=== PATIENT | male | born 1970 | race Two or more races ===

== ENCOUNTER 2017-04-19 12:29 | Inpatient (IN) | payer MEDICARE, OTHER ==
[~2017-04-19] VITALS: Ht 172.7 cm; Wt 137.0 kg
[~2017-04-19 12:29] MED LIST: CLON0.2T PO; FURO80TA3; GLYB5TAB8; INSLISPI SC; METO-5 OR; SIMV40TA96 PO; VALS80TA42 PO
[2017-04-19] MEDS ORDERED: SODIUM CHLORIDE 0.9% 1,000 ML IV ONE ×2 (13:24)
[2017-04-19] MEDS ORDERED: VANCOMYCIN 1GM/250ML D5W 250 ML IV ONE (13:30)
[2017-04-19] MEDS ORDERED: ONDANSETRON HCL 4 MG/2 ML VIAL IV ONE (13:30)
[2017-04-19] MEDS: SODIUM CHLORIDE 0.9% 1,000 ML IV ONE ×2 (13:47→15:20)
[2017-04-19 14:00] LABS: Basophils # (auto) 0 uL; Basophils % (auto) 0.4 % (0.0-2.0); CONDITION Y; Eosinophils # (auto) 0.2 uL; Eosinophils % (auto) 1.9 % (0.0-7.0); Hematocrit 43.6 % (41.0-53.0); Hemoglobin 14.5 g/dL (13.5-17.5); Lymphocytes # (auto) 1.1 uL; Mean Corpuscular Hemoglobin 33.1 pg (28.0-32.0); Mean Corpuscular Hgb Conc. 33.2 g/dL (32.0-36.0); Mean Corpuscular Volume 99.6 fL (80.0-100.0); Mean Platelet Volume 9.4 fL (7.4-10.4); Monocytes # (auto) 0.6 uL; Monocytes % (auto) 6.5 % (0.0-12.0); Neutrophils # (auto) 7.9 uL; Neutrophils % (auto) 80.2 % (37.0-80.0); Platelet Count (auto) 295 10^3/uL (140-450); Red Cell Distribution Width 15.8 % (11.6-16.0); White Blood Cell 9.8 10^3/uL (4.4-10.8)
[2017-04-19 14:17] LABS: INR 1.09 (0.9-1.15); Partial Thromboplastin Time 34.7 sec (22.64-33.71); Prothrombin Time 11.9 sec (9.37-12.3)
[2017-04-19 14:18] LABS: Albumin 2.2 g/dL (3.4-5.0); Calcium 8.9 mg/dL (8.5-10.1)
[2017-04-19 14:19] LABS: Lactic Acid w/Reflex 2.9 mmol/L (0.4-2.0)
[2017-04-19 14:28] LABS: BUN/Creatinine Ratio 3.3; Bilirubin, Total 1.3 mg/dL (0.2-1.0); Potassium 2.8 mmol/L (3.5-5.1); Total Protein 7.9 g/dL (6.4-8.2)
[2017-04-19 14:34] LABS: B-Type Natriuretic Peptide 34.14 pg/mL (0-100)
[2017-04-19] MEDS ORDERED: cefTRIAXone 1GM/50ML D5W 50 ML IV ONE (14:45)
[2017-04-19 14:49] LABS: REFLEX LACTIC ACID YES OR NO YES
[2017-04-19 14:57] LABS: Temperature: 24.6 C (20.0-25.0)
[2017-04-19] MEDS ORDERED: HYDROcodone-ACET 5/325MG TAB PO ONE (15:00)
[2017-04-19] MEDS ORDERED: POTASSIUM CHL 10% (20 MEQ/15ML) 15ml ORAL SOLN PO ONE (15:15)
[2017-04-19] MEDS ORDERED: DOCUSATE SOD 100 MG CAP PO PRN (15:30)
[2017-04-19] MEDS ORDERED: DEXTROSE (50%) 50ML SYRG IV PRN (15:30)
[2017-04-19] MEDS ORDERED: TEMAZEPAM 15 MG CAP PO PRN (15:30)
[2017-04-19] MEDS ORDERED: SODIUM CHLORIDE 0.9% 2,000 ML IV ONE (15:30)
[2017-04-19] MEDS ORDERED: ACETAMINOPHEN 325 MG TAB PO PRN (15:30)
[2017-04-19] MEDS ORDERED: ONDANSETRON HCL 4 MG/2 ML VIAL IV PRN (15:30)
[2017-04-19] MEDS ORDERED: NITROGLYCERIN 0.4 MG SL TAB SL PRN (15:30)
[2017-04-19] MEDS ORDERED: MORPHINE SULF INJ 2 MG/ML SYRINGE 1ML IV PRN ×2 (15:30)
[2017-04-19] MEDS ORDERED: POTASSIUM CHLORIDE 40 MEQ, LIDOCAINE 1% (LOCAL ANESTH.) 4 ML in SODIUM CHL 0.9% 250 ML IV ONE (16:00)
[2017-04-19] MEDS: SODIUM CHLORIDE 0.9% 1,000 ML IV SCH ×2 (16:06→23:55)
[2017-04-19] MEDS: FAMOTIDINE 20 MG TAB PO SCH (16:52)
[2017-04-19] MEDS: ACCU-CHEK COMFORT CURVE STRIP VI SCH ×2 (17:59→21:57)
[2017-04-19] MEDS: Boost Glucose Control 8 Ounces PO SCH ×2 (18:00→21:55)
[2017-04-19] MEDS: FUROSEMIDE 20 MG TAB PO SCH (18:00)
[2017-04-19] MEDS: InsuLIN REG 1unit/0.01ml Soln (100units/ml) SC SCH ×2 (18:07→21:57)
[2017-04-19 21:19] LABS: BUN/Creatinine Ratio 3.5; Calcium 8.4 mg/dL (8.5-10.1); Potassium 3.7 mmol/L (3.5-5.1)
[2017-04-19] MEDS: CLINDAMYCIN 300MG IV 50 ML IV SCH (21:55)
[2017-04-19] MEDS: METOPROLOL TARTRATE 50 MG TAB PO SCH (21:56)
[2017-04-19] MEDS: ASCORBIC ACID 500 MG TAB PO SCH (21:57)
[2017-04-19] MEDS: INSULIN DETEMIR(LEVEMIR) 1unit/0.01ml Soln (100units/ml) SC SCH (22:23)
[2017-04-19 23:59] VITALS: BP 156/88
[2017-04-20] VITALS (7 sets, daily range): BP systolic 127–159; BP diastolic 69–91
[2017-04-20] MEDS: HYDROcodone-ACET 5/325MG TAB PO PRN (02:26)
[2017-04-20 06:14] LABS: Basophils # (auto) 0 uL; Basophils % (auto) 0.4 % (0.0-2.0); CONDITION Y; Eosinophils # (auto) 0.1 uL; Eosinophils % (auto) 1.5 % (0.0-7.0); Hematocrit 35.7 % (41.0-53.0); Hemoglobin 11.8 g/dL (13.5-17.5); Lymphocytes # (auto) 1.4 uL; Lymphocytes % (auto) 15.4 % (10.0-50.0); Mean Corpuscular Hgb Conc. 33.2 g/dL (32.0-36.0); Mean Corpuscular Volume 99.7 fL (80.0-100.0); Mean Platelet Volume 9.1 fL (7.4-10.4); Monocytes # (auto) 0.7 uL; Neutrophils # (auto) 6.8 uL; Neutrophils % (auto) 74.7 % (37.0-80.0); Platelet Count (auto) 277 10^3/uL (140-450); Red Cell Distribution Width 16.5 % (11.6-16.0); White Blood Cell 9.2 10^3/uL (4.4-10.8)
[2017-04-20] MEDS: CLINDAMYCIN 300MG IV 50 ML IV SCH ×3 (06:22→22:29)
[2017-04-20] MEDS: Boost Glucose Control 8 Ounces PO SCH ×4 (06:22→22:31)
[2017-04-20] MEDS: FUROSEMIDE 20 MG TAB PO SCH (06:23)
[2017-04-20 06:35] LABS: Albumin 1.6 g/dL (3.4-5.0)
[2017-04-20 06:49] LABS: BUN/Creatinine Ratio 3.5; Bilirubin, Total 0.6 mg/dL (0.2-1.0)
[2017-04-20] MEDS: ACCU-CHEK COMFORT CURVE STRIP VI SCH ×4 (06:52→22:00)
[2017-04-20] MEDS: InsuLIN REG 1unit/0.01ml Soln (100units/ml) SC SCH ×4 (06:53→22:00)
[2017-04-20] MEDS: INSULIN DETEMIR(LEVEMIR) 1unit/0.01ml Soln (100units/ml) SC SCH ×2 (06:53→22:00)
[2017-04-20 06:59] LABS: Potassium 2.9 mmol/L (3.5-5.1)
[2017-04-20] MEDS: SODIUM CHLORIDE 0.9% 1,000 ML IV SCH (08:03)
[2017-04-20] MEDS ORDERED: CINACALCET HYDROCHLORIDE 30 MG TAB PO SCH (10:00)
[2017-04-20] MEDS: cefTRIAXone 1GM/50ML D5W 50 ML IV SCH (10:42)
[2017-04-20] MEDS: MULTIPLE VITAMIN TAB PO SCH (10:43)
[2017-04-20] MEDS: ZINC SULFATE 220 MG CAP PO SCH (10:43)
[2017-04-20] MEDS: CALCITRIOL 0.25 MCG CAP PO SCH (10:43)
[2017-04-20] MEDS: FAMOTIDINE 20 MG TAB PO SCH (10:43)
[2017-04-20] MEDS: METOPROLOL TARTRATE 50 MG TAB PO SCH (10:44)
[2017-04-20] MEDS: ASCORBIC ACID 500 MG TAB PO SCH ×2 (10:44→22:31)
[2017-04-20] MEDS ORDERED: POTASSIUM CHLORIDE 20 MEQ, LIDOCAINE 1% (LOCAL ANESTH.) 2 ML in SODIUM CHL 0.9% 100 ML IV ONE (13:45)
[2017-04-20] MEDS ORDERED: PANTOPRAZOLE 40 MG/10 ML VIAL IV ONE (15:00)
[2017-04-20] MEDS ORDERED: FAMOTIDINE (10MG/ML) 2ML VL IV ONE (15:00)
[2017-04-20 16:07] LABS: BUN/Creatinine Ratio 3.4; Calcium 8.5 mg/dL (8.5-10.1); Potassium 3.5 mmol/L (3.5-5.1)
[2017-04-20] MEDS: METOPROLOL TARTRATE 25 MG TAB PO SCH (22:30)
[2017-04-21 05:00] VITALS: BP 134/70
[2017-04-21 05:38] LABS: Basophils # (auto) 0 uL; Basophils % (auto) 0.3 % (0.0-2.0); CONDITION Y; Eosinophils # (auto) 0.1 uL; Hematocrit 38.5 % (41.0-53.0); Hemoglobin 12.9 g/dL (13.5-17.5); Lymphocytes # (auto) 1.6 uL; Lymphocytes % (auto) 13.8 % (10.0-50.0); Mean Corpuscular Hemoglobin 33.4 pg (28.0-32.0); Mean Corpuscular Hgb Conc. 33.5 g/dL (32.0-36.0); Mean Corpuscular Volume 99.5 fL (80.0-100.0); Monocytes # (auto) 0.7 uL; Neutrophils % (auto) 78.9 % (37.0-80.0); Platelet Count (auto) 315 10^3/uL (140-450); White Blood Cell 11.4 10^3/uL (4.4-10.8)
[2017-04-21 05:40] LABS: Potassium 3.3 mmol/L (3.5-5.1)
[2017-04-21 05:49] LABS: Albumin 1.7 g/dL (3.4-5.0); BUN/Creatinine Ratio 3.3; Bilirubin, Total 0.5 mg/dL (0.2-1.0); Calcium 8.1 mg/dL (8.5-10.1); Total Protein 6.9 g/dL (6.4-8.2)
[2017-04-21] MEDS: CLINDAMYCIN 300MG IV 50 ML IV SCH ×2 (06:41→13:43)
[2017-04-21] MEDS: Boost Glucose Control 8 Ounces PO SCH ×2 (06:41→11:37)
[2017-04-21] MEDS: ACCU-CHEK COMFORT CURVE STRIP VI SCH ×4 (06:41→22:26)
[2017-04-21] MEDS: InsuLIN REG 1unit/0.01ml Soln (100units/ml) SC SCH ×4 (06:42→22:00)
[2017-04-21] MEDS: INSULIN DETEMIR(LEVEMIR) 1unit/0.01ml Soln (100units/ml) SC SCH ×2 (06:52→22:00)
[2017-04-21 09:00] VITALS: BP 130/60
[2017-04-21] MEDS: PANTOPRAZOLE 40 MG/10 ML VIAL IV SCH (09:21)
[2017-04-21] MEDS: ASCORBIC ACID 500 MG TAB PO SCH ×2 (09:21→22:18)
[2017-04-21] MEDS: ZINC SULFATE 220 MG CAP PO SCH (09:21)
[2017-04-21] MEDS: cefTRIAXone 1GM/50ML D5W 50 ML IV SCH (09:21)
[2017-04-21] MEDS: CALCITRIOL 0.25 MCG CAP PO SCH (09:21)
[2017-04-21] MEDS: MULTIPLE VITAMIN TAB PO SCH (09:22)
[2017-04-21] MEDS: METOPROLOL TARTRATE 25 MG TAB PO SCH ×2 (09:23→22:17)
[2017-04-21] MEDS ORDERED: FAMOTIDINE (10MG/ML) 2ML VL IV SCH (10:00)
[2017-04-21 13:00] VITALS: BP 109/60
[2017-04-21] MEDS ORDERED: ACETAMINOPHEN 325 MG TAB PO PRN (13:45)
[2017-04-21] MEDS ORDERED: VANCOMYCIN PER PHARMACY 0 MG IV SCH (14:30)
[2017-04-21] MEDS: LINEZOLID 600MG/300ML 300 ML IV SCH ×2 (15:49→22:17)
[2017-04-21] MEDS: SODIUM CHLORIDE 0.9% 1,000 ML IV SCH (15:49)
[2017-04-21] MEDS ORDERED: POTASSIUM CHL 20 Meq TABLET PO ONE (16:45)
[2017-04-21 17:00] VITALS: BP 109/70
[2017-04-21] MEDS: PRO-STAT 64 30ML PO SCH (18:04)
[2017-04-21 21:46] VITALS: BP 127/76
[2017-04-22 05:00] VITALS: BP 120/61
[2017-04-22] MEDS: INSULIN DETEMIR(LEVEMIR) 1unit/0.01ml Soln (100units/ml) SC SCH ×2 (07:00→22:40)
[2017-04-22] MEDS: ACCU-CHEK COMFORT CURVE STRIP VI SCH ×4 (07:00→22:00)
[2017-04-22] MEDS: InsuLIN REG 1unit/0.01ml Soln (100units/ml) SC SCH ×4 (07:00→22:39)
[2017-04-22] MEDS: SODIUM CHLORIDE 0.9% 1,000 ML IV SCH (07:39)
[2017-04-22] MEDS: PRO-STAT 64 30ML PO SCH ×2 (08:00→18:43)
[2017-04-22 08:03] VITALS: BP 145/86
[2017-04-22] MEDS: LINEZOLID 600MG/300ML 300 ML IV SCH ×2 (10:08→22:23)
[2017-04-22] MEDS: ASCORBIC ACID 500 MG TAB PO SCH ×2 (10:08→22:23)
[2017-04-22] MEDS: PANTOPRAZOLE 40 MG/10 ML VIAL IV SCH (10:08)
[2017-04-22] MEDS: ZINC SULFATE 220 MG CAP PO SCH (10:09)
[2017-04-22] MEDS: CALCITRIOL 0.25 MCG CAP PO SCH (10:09)
[2017-04-22] MEDS: MULTIPLE VITAMIN TAB PO SCH (10:09)
[2017-04-22] MEDS: METOPROLOL TARTRATE 25 MG TAB PO SCH ×2 (10:09→22:22)
[2017-04-22] MEDS: cefTRIAXone 1GM/50ML D5W 50 ML IV SCH (10:10)
[2017-04-22 10:47] LABS: Albumin 1.5 g/dL (3.4-5.0); BUN/Creatinine Ratio 3.4; Bilirubin, Total 0.4 mg/dL (0.2-1.0); Calcium 8.6 mg/dL (8.5-10.1); Potassium 3.4 mmol/L (3.5-5.1); Total Protein 6.5 g/dL (6.4-8.2)
[2017-04-22 12:00] VITALS: BP 134/71
[2017-04-22] MEDS ORDERED: ceFAZolin 1GM VL ONE (13:03)
[2017-04-22] MEDS ORDERED: BUPIVACAINE 0.75% INJ 10ML MPV SDV IJ ONE (13:03)
[2017-04-22] MEDS ORDERED: ONDANSETRON HCL 4 MG/2 ML VIAL ONE (13:05)
[2017-04-22] MEDS ORDERED: SODIUM CHLORIDE LOCK 20 ML ONE (13:05)
[2017-04-22] MEDS ORDERED: fentaNYL CITRATE 100 MCG/2 ML VL ONE (13:05)
[2017-04-22] MEDS ORDERED: MIDAZOLAM HCL 1MG/1ML-2 ML VIAL ONE (13:05)
[2017-04-22] MEDS ORDERED: PROPOFOL 10 MG/ML 20 ML IV ONE ×3 (13:05→14:27)
[2017-04-22] MEDS ORDERED: CLINDAMYCIN 900 MG IV ONE (13:44)
[2017-04-22] MEDS: HYDROmorphone HCL 2 MG/ML VL IV PRN ×2 (15:14→15:24)
[2017-04-22] MEDS ORDERED: ACCU-CHEK COMFORT CURVE STRIP VI ONE (15:15)
[2017-04-22] MEDS ORDERED: METOCLOPRAMIDE HCL 5MG/ml INJ 2ml VIAL IV ONE (15:15)
[2017-04-22] MEDS ORDERED: METOCLOPRAMIDE HCL 5MG/ml INJ 2ml VIAL IV PRN (15:30)
[2017-04-22 17:00] VITALS: BP 145/87
[2017-04-22] MEDS ORDERED: HYDROmorphone HCL 2 MG/ML VL IV PRN (17:15)
[2017-04-22 20:00] VITALS: BP 132/80
[2017-04-22 22:00] VITALS: BP 132/80
[2017-04-23] VITALS (7 sets, daily range): BP systolic 136–157; BP diastolic 83–97
[2017-04-23 06:05] LABS: Basophils # (auto) 0 uL; CONDITION Y; Eosinophils # (auto) 0 uL; Hematocrit 38.5 % (41.0-53.0); Hemoglobin 12.6 g/dL (13.5-17.5); Lymphocytes # (auto) 0.8 uL; Lymphocytes % (auto) 7.3 % (10.0-50.0); Mean Corpuscular Hemoglobin 32.8 pg (28.0-32.0); Mean Corpuscular Hgb Conc. 32.7 g/dL (32.0-36.0); Mean Corpuscular Volume 100.4 fL (80.0-100.0); Mean Platelet Volume 9.4 fL (7.4-10.4); Monocytes # (auto) 0.4 uL; Monocytes % (auto) 3.9 % (0.0-12.0); Neutrophils # (auto) 10.2 uL; Neutrophils % (auto) 88.8 % (37.0-80.0); Platelet Count (auto) 288 10^3/uL (140-450); Red Cell Distribution Width 16.5 % (11.6-16.0); White Blood Cell 11.5 10^3/uL (4.4-10.8)
[2017-04-23 06:43] LABS: Calcium 8.1 mg/dL (8.5-10.1); Potassium 3.3 mmol/L (3.5-5.1)
[2017-04-23] MEDS: InsuLIN REG 1unit/0.01ml Soln (100units/ml) SC SCH ×4 (06:46→22:20)
[2017-04-23] MEDS: ACCU-CHEK COMFORT CURVE STRIP VI SCH ×4 (06:47→22:20)
[2017-04-23] MEDS: INSULIN DETEMIR(LEVEMIR) 1unit/0.01ml Soln (100units/ml) SC SCH ×2 (06:47→22:19)
[2017-04-23 06:51] LABS: BUN/Creatinine Ratio 3.6
[2017-04-23] MEDS: PRO-STAT 64 30ML PO SCH ×4 (09:09→18:08)
[2017-04-23] MEDS: PANTOPRAZOLE 40 MG/10 ML VIAL IV SCH (09:10)
[2017-04-23] MEDS: ASCORBIC ACID 500 MG TAB PO SCH ×2 (09:10→22:04)
[2017-04-23] MEDS: cefTRIAXone 1GM/50ML D5W 50 ML IV SCH (09:10)
[2017-04-23] MEDS: MULTIPLE VITAMIN TAB PO SCH (09:10)
[2017-04-23] MEDS: CALCITRIOL 0.25 MCG CAP PO SCH (09:11)
[2017-04-23] MEDS: METOPROLOL TARTRATE 25 MG TAB PO SCH ×2 (09:11→22:04)
[2017-04-23] MEDS: ZINC SULFATE 220 MG CAP PO SCH (09:11)
[2017-04-23] MEDS: LINEZOLID 600MG/300ML 300 ML IV SCH ×2 (10:22→22:07)
[2017-04-23 12:48] LABS: INR 1.1 (0.9-1.15); Partial Thromboplastin Time 39.6 sec (22.64-33.71)
[2017-04-23] MEDS: HYDROcodone-ACET 5/325MG TAB PO PRN (16:52)
[2017-04-23] MEDS ORDERED: LIDOCAINE 1% HCL (LOCAL ANESTH.) INJ 20ML MDV ID ONE (18:00)
[2017-04-23] MEDS: SODIUM CHLOR 0.9% PF (SALINE LOCK) 10ML VIAL IV SCH (22:07)
[2017-04-24] VITALS (7 sets, daily range): BP systolic 125–159; BP diastolic 78–95
[2017-04-24] MEDS ORDERED: hydrALAZINE HCL 20 MG/ML VL IV ONE (00:30)
[2017-04-24] MEDS: ACCU-CHEK COMFORT CURVE STRIP VI SCH ×4 (07:00→22:16)
[2017-04-24] MEDS: InsuLIN REG 1unit/0.01ml Soln (100units/ml) SC SCH ×4 (07:00→22:21)
[2017-04-24] MEDS: INSULIN DETEMIR(LEVEMIR) 1unit/0.01ml Soln (100units/ml) SC SCH ×2 (07:00→22:22)
[2017-04-24] MEDS: MULTIPLE VITAMIN TAB PO SCH (09:41)
[2017-04-24] MEDS: ASCORBIC ACID 500 MG TAB PO SCH ×2 (09:42→22:13)
[2017-04-24] MEDS: CALCITRIOL 0.25 MCG CAP PO SCH (09:42)
[2017-04-24] MEDS: ZINC SULFATE 220 MG CAP PO SCH (09:42)
[2017-04-24] MEDS: PANTOPRAZOLE 40 MG/10 ML VIAL IV SCH (09:43)
[2017-04-24] MEDS: METOPROLOL TARTRATE 25 MG TAB PO SCH ×2 (09:43→22:13)
[2017-04-24] MEDS: cefTRIAXone 1GM/50ML D5W 50 ML IV SCH (09:44)
[2017-04-24] MEDS: LINEZOLID 600MG/300ML 300 ML IV SCH ×2 (09:44→22:12)
[2017-04-24] MEDS: SODIUM CHLOR 0.9% PF (SALINE LOCK) 10ML VIAL IV SCH ×2 (09:49→20:20)
[2017-04-24] MEDS: PRO-STAT 64 30ML PO SCH ×3 (09:49→17:45)
[2017-04-24] MEDS: HYDROcodone-ACET 5/325MG TAB PO PRN (10:02)
[2017-04-24] MEDS ORDERED: METOCLOPRAMIDE HCL 5MG/ml INJ 2ml VIAL IV ONE (20:15)
[2017-04-25 05:06] VITALS: BP 147/71
[2017-04-25] MEDS: InsuLIN REG 1unit/0.01ml Soln (100units/ml) SC SCH ×4 (07:00→22:00)
[2017-04-25] MEDS: INSULIN DETEMIR(LEVEMIR) 1unit/0.01ml Soln (100units/ml) SC SCH ×2 (07:23→22:00)
[2017-04-25] MEDS: ACCU-CHEK COMFORT CURVE STRIP VI SCH ×4 (07:23→22:11)
[2017-04-25 08:00] VITALS: BP 128/78
[2017-04-25] MEDS: PRO-STAT 64 30ML PO SCH ×2 (08:00→18:00)
[2017-04-25] MEDS: SODIUM CHLOR 0.9% PF (SALINE LOCK) 10ML VIAL IV SCH ×2 (10:00→22:12)
[2017-04-25] MEDS: LINEZOLID 600MG/300ML 300 ML IV SCH ×2 (10:28→22:11)
[2017-04-25] MEDS: cefTRIAXone 1GM/50ML D5W 50 ML IV SCH (10:28)
[2017-04-25] MEDS: METOPROLOL TARTRATE 25 MG TAB PO SCH ×2 (10:29→22:12)
[2017-04-25] MEDS: ASCORBIC ACID 500 MG TAB PO SCH ×2 (10:29→22:13)
[2017-04-25] MEDS: CALCITRIOL 0.25 MCG CAP PO SCH (10:29)
[2017-04-25] MEDS: MULTIPLE VITAMIN TAB PO SCH (10:32)
[2017-04-25] MEDS: PANTOPRAZOLE 40 MG/10 ML VIAL IV SCH (10:32)
[2017-04-25] MEDS: ZINC SULFATE 220 MG CAP PO SCH (10:32)
[2017-04-25 12:00] VITALS: BP 149/78
[2017-04-25 17:27] VITALS: BP 141/77
[2017-04-25 22:00] VITALS: BP 152/91
[2017-04-26] MEDS: InsuLIN REG 1unit/0.01ml Soln (100units/ml) SC SCH ×4 (05:40→21:55)
[2017-04-26] MEDS: INSULIN DETEMIR(LEVEMIR) 1unit/0.01ml Soln (100units/ml) SC SCH ×2 (05:41→21:55)
[2017-04-26] MEDS: ACCU-CHEK COMFORT CURVE STRIP VI SCH ×4 (05:41→21:54)
[2017-04-26 05:59] VITALS: BP 133/75
[2017-04-26] MEDS: PRO-STAT 64 30ML PO SCH ×2 (08:00→18:00)
[2017-04-26 08:56] VITALS: BP 139/77
[2017-04-26] MEDS: cefTRIAXone 1GM/50ML D5W 50 ML IV SCH (10:11)
[2017-04-26] MEDS: LINEZOLID 600MG/300ML 300 ML IV SCH ×2 (10:12→21:54)
[2017-04-26] MEDS: ZINC SULFATE 220 MG CAP PO SCH (10:12)
[2017-04-26] MEDS: SODIUM CHLOR 0.9% PF (SALINE LOCK) 10ML VIAL IV SCH ×2 (10:12→21:54)
[2017-04-26] MEDS: PANTOPRAZOLE 40 MG/10 ML VIAL IV SCH (10:12)
[2017-04-26] MEDS: METOPROLOL TARTRATE 25 MG TAB PO SCH ×2 (10:13→21:54)
[2017-04-26] MEDS: MULTIPLE VITAMIN TAB PO SCH (10:14)
[2017-04-26] MEDS: CALCITRIOL 0.25 MCG CAP PO SCH (10:14)
[2017-04-26] MEDS: ASCORBIC ACID 500 MG TAB PO SCH ×2 (10:14→21:54)
[2017-04-26 12:30] VITALS: BP 133/82
[2017-04-26 16:35] VITALS: BP 157/93
[2017-04-26 22:06] VITALS: BP 144/80
[2017-04-27 05:28] VITALS: BP 139/85
[2017-04-27] MEDS: ACCU-CHEK COMFORT CURVE STRIP VI SCH ×3 (06:15→17:00)
[2017-04-27] MEDS: InsuLIN REG 1unit/0.01ml Soln (100units/ml) SC SCH ×3 (06:15→17:00)
[2017-04-27] MEDS: INSULIN DETEMIR(LEVEMIR) 1unit/0.01ml Soln (100units/ml) SC SCH (06:27)
[2017-04-27 07:30] VITALS: BP 137/79
[2017-04-27 09:00] VITALS: BP 141/75
[2017-04-27] MEDS: PANTOPRAZOLE 40 MG/10 ML VIAL IV SCH (09:37)
[2017-04-27] MEDS: cefTRIAXone 1GM/50ML D5W 50 ML IV SCH (09:37)
[2017-04-27] MEDS: CALCITRIOL 0.25 MCG CAP PO SCH (09:37)
[2017-04-27] MEDS: MULTIPLE VITAMIN TAB PO SCH (09:38)
[2017-04-27] MEDS: ASCORBIC ACID 500 MG TAB PO SCH (09:38)
[2017-04-27] MEDS: ZINC SULFATE 220 MG CAP PO SCH (09:38)
[2017-04-27] MEDS: METOPROLOL TARTRATE 25 MG TAB PO SCH (09:38)
[2017-04-27] MEDS: LINEZOLID 600MG/300ML 300 ML IV SCH (09:39)
[2017-04-27] MEDS: SODIUM CHLOR 0.9% PF (SALINE LOCK) 10ML VIAL IV SCH (09:39)
[2017-04-27] MEDS: PRO-STAT 64 30ML PO SCH (09:39)
[2017-04-27 12:30] VITALS: BP 162/90
[2017-04-27] MEDS ORDERED: FLUCONAZOLE 100 MG TAB PO ONE (15:00)
[2017-04-27 16:01] VITALS: BP 141/75
[2017-04-27 17:02] VITALS: BP 160/101
[2017-04-28] MEDS ORDERED: PANTOPRAZOLE 40 MG TAB PO SCH (10:00)
[2017-04-28] MEDS ORDERED: FLUCONAZOLE 100 MG TAB PO SCH (10:00)
== END 2017-04-27 16:30 | disposition home health service (06) | DRG 853 ==
LOC: ER 12:29 → TELE 12:30 → TELE-WESTW 23:47
PROVIDERS: ADMIT Internal Medicine; ATTEND Internal Medicine
PROC: 0QBP0ZZ Excision of Left Metatarsal, Open Approach (ICD-10-PCS; 2017-04-22)
PROC: 0Y6Q0Z0 Detachment at Left 1st Toe, Complete, Open Approach (ICD-10-PCS; principal; 2017-04-22 13:26)
PROC: 02HV33Z Insertion of Infusion Device into Superior Vena Cava, Percutaneous Approach (ICD-10-PCS; 2017-04-23)
DX: A41.02 Sepsis due to Methicillin resistant Staphylococcus aureus (principal); N18.6 End stage renal disease; E11.21 Type 2 diabetes mellitus with diabetic nephropathy; E44.0 Moderate protein-calorie malnutrition; I12.0 Hypertensive chronic kidney disease with stage 5 chronic kidney disease or end stage renal disease; E87.1 Hypo-osmolality and hyponatremia; L02.612 Cutaneous abscess of left foot; J98.11 Atelectasis; M86.8X7 Other osteomyelitis, ankle and foot; Z68.45 Body mass index [BMI] 70 or greater, adult; E11.22 Type 2 diabetes mellitus with diabetic chronic kidney disease; E87.6 Hypokalemia; E11.42 Type 2 diabetes mellitus with diabetic polyneuropathy; E11.621 Type 2 diabetes mellitus with foot ulcer; Z98.84 Bariatric surgery status; E78.5 Hyperlipidemia, unspecified; E86.0 Dehydration; K52.9 Noninfective gastroenteritis and colitis, unspecified; E11.69 Type 2 diabetes mellitus with other specified complication; K76.0 Fatty (change of) liver, not elsewhere classified; L97.519 Non-pressure chronic ulcer of other part of right foot with unspecified severity; L97.529 Non-pressure chronic ulcer of other part of left foot with unspecified severity; Z79.4 Long term (current) use of insulin; Z82.49 Family history of ischemic heart disease and other diseases of the circulatory system; Z83.3 Family history of diabetes mellitus; Z89.412 Acquired absence of left great toe; Z89.429 Acquired absence of other toe(s), unspecified side; Z90.49 Acquired absence of other specified parts of digestive tract; Z86.14 Personal history of Methicillin resistant Staphylococcus aureus infection; Z99.2 Dependence on renal dialysis; Z79.899 Other long term (current) drug therapy
CPT/HCPCS: 36415; 36569; 71010; 73620; 73630; 74176; 76000; 80048; 80053; 82962; 83036; 83605; 83880; 84484; 85025; 85610; 85730; 87040; 87077; 87147; 87186; 87205; 93005; 93306; 96361; 96365; C9113; J0690; J0696; J1815; J2001; J2250; J2405; J2704; J3490

== ENCOUNTER 2017-12-18 20:47 | Inpatient (IN) | payer MEDICARE, BC ==
[~2017-12-18] VITALS: Ht 171.4 cm; Wt 98.2 kg
[2017-12-18] MEDS ORDERED: SODIUM CHLORIDE 0.9% 1,000 ML IV ONE ×3 (20:59→23:45)
[2017-12-18 21:20] LABS: Basophils # (auto) 0.1 uL; Basophils % (auto) 0.3 % (0.0-2.0); Eosinophils # (auto) 0 uL; Eosinophils % (auto) 0.1 % (0.0-7.0); Hematocrit 31.6 % (41.0-53.0); Hemoglobin 9.7 g/dL (13.5-17.5); Lymphocytes # (auto) 1.1 uL; Mean Corpuscular Hemoglobin 28.8 pg (28.0-32.0); Mean Corpuscular Hgb Conc. 30.7 g/dL (32.0-36.0); Mean Corpuscular Volume 93.9 fL (80.0-100.0); Monocytes # (auto) 0.7 uL; Monocytes % (auto) 3.3 % (0.0-12.0); Neutrophils # (auto) 20.2 uL; Neutrophils % (auto) 91.3 % (37.0-80.0); Nucleated Red Blood Cells % 0.2 %; Platelet Count (auto) 418 10^3/uL (140-450); Red Blood Cells 3.37 10^6/uL (4.5-5.90); White Blood Cell 22.1 10^3/uL (4.4-10.8)
[2017-12-18] MEDS ORDERED: NOREPINEPHRINE 16 MG/500ML KIT 500 ML IV ONE (21:20)
[2017-12-18 21:38] LABS: BUN/Creatinine Ratio 4.6
[2017-12-18 21:41] LABS: Bilirubin, Total 0.7 mg/dL (0.2-1.0); Lactic Acid w/Reflex 10.5 mmol/L (0.4-2.0); Total Protein 6.1 g/dL (6.4-8.2)
[2017-12-18 21:43] LABS: Potassium 2.7 mmol/L (3.5-5.1)
[2017-12-18] MEDS ORDERED: SODIUM BICARBONATE 8.4% INJ 50ML SYRINGE ONE (21:44)
[2017-12-18] MEDS ORDERED: POTASSIUM CHL 20MEQ/100ML 200 ML IV ONE (21:44)
[2017-12-18] MEDS: POTASSIUM CHL 20MEQ/100ML 100 ML IV SCH ×2 (21:45→23:38)
[2017-12-18] MEDS ORDERED: SODIUM BICARBONATE 8.4 % INJ 50ML VIAL IV ONE (21:45)
[2017-12-18] MEDS ORDERED: cefTRIAXone 1GM/10ml IVPUSH 10 ML IV ONE (22:45)
[2017-12-19] VITALS (18 sets, daily range): BP systolic 105–143; BP diastolic 53–77
[2017-12-19] MEDS ORDERED: LEVOFLOXACIN 500MG 100 ML IV ONE (00:30)
[2017-12-19] MEDS ORDERED: HETASTARCH 500 ML IV ONE (00:30)
[2017-12-19] MEDS ORDERED: SODIUM CHLORIDE 0.9% 1,000 ML IV SCH ×2 (00:45→04:45)
[2017-12-19] MEDS ORDERED: MORPHINE SULFATE 8mg/ml INJ SDV IV PRN ×2 (00:45→15:00)
[2017-12-19] MEDS ORDERED: metroNIDAZOLE 500MG/100ML 100 ML IV ONE (00:45)
[2017-12-19] MEDS ORDERED: TEMAZEPAM 15 MG CAP PO PRN (00:45)
[2017-12-19] MEDS ORDERED: ONDANSETRON HCL 4 MG/2 ML VIAL IV PRN (00:45)
[2017-12-19] MEDS ORDERED: HYDROcodone-ACET 5/325MG TAB PO PRN (00:45)
[2017-12-19] MEDS ORDERED: DEXTROSE (50%) 50ML SYRG IV PRN (00:45)
[2017-12-19] MEDS ORDERED: NITROGLYCERIN 0.4 MG SL TAB SL PRN (00:45)
[2017-12-19] MEDS ORDERED: ACETAMINOPHEN 325 MG TAB PO PRN (00:45)
[2017-12-19] MEDS: NOREPINEPHRINE 16 MG/500ML KIT 500 ML IV SCH ×2 (00:46→21:45)
[2017-12-19] MEDS: ACCU-CHEK COMFORT CURVE STRIP VI SCH ×4 (05:38→23:31)
[2017-12-19] MEDS: InsuLIN REG 1unit/0.01ml Soln (100units/ml) SC SCH ×4 (05:38→23:31)
[2017-12-19] MEDS: metroNIDAZOLE 500MG/100ML 100 ML IV SCH ×3 (05:53→22:35)
[2017-12-19] MEDS: LINEZOLID 600 MG/300 ML IV BAG IV SCH ×2 (05:53→18:26)
[2017-12-19 06:46] LABS: Hematocrit 28.9 % (41.0-53.0); Mean Corpuscular Hemoglobin 29.2 pg (28.0-32.0); Mean Corpuscular Hgb Conc. 31.1 g/dL (32.0-36.0); Mean Corpuscular Volume 93.6 fL (80.0-100.0); Platelet Count (auto) 423 10^3/uL (140-450); Red Blood Cells 3.09 10^6/uL (4.5-5.90); Red Cell Distribution Width 17.1 % (11.8-14.3); White Blood Cell 22.1 10^3/uL (4.4-10.8)
[2017-12-19 06:52] LABS: Basophils % (manual) 0 (0.0-2.0); Blast Cells 0; Eosinophils % (manual) 0 (0-7); Metamyelocytes % 0; Myelocytes % 0; Promyelocytes % 0; Reactive Lymphocytes 0
[2017-12-19 06:54] LABS: INR 1.2 (0.9-1.15); Partial Thromboplastin Time 48.1 sec (22.64-33.71); Prothrombin Time 13.1 sec (9.37-12.3)
[2017-12-19 06:58] LABS: Albumin 0.9 g/dL (3.4-5.0); BUN/Creatinine Ratio 5.1; Calcium 9.1 mg/dL (8.5-10.1)
[2017-12-19 07:02] LABS: Bilirubin, Total 0.6 mg/dL (0.2-1.0); Total Protein 5.7 g/dL (6.4-8.2)
[2017-12-19 07:10] LABS: Potassium 2.7 mmol/L (3.5-5.1)
[2017-12-19] MEDS ORDERED: D5W/ SOD CHL 0.9%/KCL 20MEQ 1,000 ML IV SCH (07:45)
[2017-12-19] MEDS ORDERED: SODIUM CHLORIDE 0.9% 500 ML IV ONE (07:45)
[2017-12-19] MEDS: POTASSIUM CHL 20MEQ/100ML 100 ML IV SCH ×2 (08:03→09:46)
[2017-12-19 08:28] LABS: Band Neutrophils % (manual) 10; Lymphocytes % (manual) 7 (10.0-50.0); Monocytes % (manual) 3 (0-12)
[2017-12-19] MEDS ORDERED: PANTOPRAZOLE 40 MG TAB PO SCH (10:00)
[2017-12-19] MEDS ORDERED: LINEZOLID 600 MG/300 ML IV BAG IV SCH ×3 (10:00)
[2017-12-19] MEDS: HEPARIN SODIUM (PORCINE) 5000 UNITS/ML 1ML VIAL SC SCH ×2 (10:07→22:33)
[2017-12-19] MEDS ORDERED: ETOMIDATE (2MG/ML) 20ML VIAL IV ONE ×2 (11:12→13:15)
[2017-12-19] MEDS ORDERED: MIDAZOLAM DRIP 50 mg/50mL 50 ML IV ONE (11:14)
[2017-12-19] MEDS ORDERED: CEFOTAXIME SODIUM 2 GM in D5W 5% 100 ML IV ONE (11:15)
[2017-12-19] MEDS: CEFTRIAXONE SODIUM 2 GM in D5W 5% 50 ML IV SCH (12:15)
[2017-12-19] MEDS: ALBUMIN 25% 100 ML IV SCH ×2 (12:32→19:57)
[2017-12-19] MEDS: MIDAZOLAM DRIP 50 mg/50mL 50 ML IV SCH ×2 (13:15→22:14)
[2017-12-19] MEDS ORDERED: LORazepam 2MG/ML-1ML VIAL IV PRN (15:00)
[2017-12-19] MEDS ORDERED: ALBUTEROL SULF 2.5 MG/0.5ML(0.5%) NEB SOLN NEB SCH (15:00)
[2017-12-19] MEDS: PANTOPRAZOLE 40 MG/10 ML VIAL IV SCH (15:25)
[2017-12-19] MEDS ORDERED: IPRATROPIUM BROM 0.5 MG/2.5ML INH SOL NEB SCH (18:00)
[2017-12-19] MEDS ORDERED: ATORVASTATIN 20 MG TAB PO SCH (22:00)
[2017-12-20] VITALS (62 sets, daily range): BP systolic 89–190; BP diastolic 30–87
[2017-12-20] MEDS: ALBUTEROL SULF 2.5 MG/0.5ML(0.5%) NEB SOLN NEB SCH ×3 (01:13→11:58)
[2017-12-20] MEDS: IPRATROPIUM BROM 0.5 MG/2.5ML INH SOL NEB SCH ×3 (01:14→11:58)
[2017-12-20] MEDS: ALBUMIN 25% 100 ML IV SCH (03:17)
[2017-12-20 03:54] LABS: Mean Corpuscular Hemoglobin 29.5 pg (28.0-32.0); Mean Corpuscular Hgb Conc. 31.2 g/dL (32.0-36.0)
[2017-12-20 03:56] LABS: Hematocrit 26.2 % (41.0-53.0); Hemoglobin 8.2 g/dL (13.5-17.5); Mean Corpuscular Volume 94.5 fL (80.0-100.0); Platelet Count (auto) 296 10^3/uL (140-450); Red Blood Cells 2.77 10^6/uL (4.5-5.90); Red Cell Distribution Width 17.9 % (11.8-14.3); White Blood Cell 16.8 10^3/uL (4.4-10.8)
[2017-12-20 03:57] LABS: Albumin 1.5 g/dL (3.4-5.0); Calcium 9.1 mg/dL (8.5-10.1)
[2017-12-20 04:00] LABS: Bilirubin, Total 0.9 mg/dL (0.2-1.0); Total Protein 5.5 g/dL (6.4-8.2)
[2017-12-20 04:08] LABS: Basophils % (manual) 0 (0.0-2.0); Blast Cells 0; Eosinophils % (manual) 0 (0-7); Promyelocytes % 0; Reactive Lymphocytes 0
[2017-12-20 04:10] LABS: Potassium 2.8 mmol/L (3.5-5.1)
[2017-12-20] MEDS: MIDAZOLAM DRIP 50 mg/50mL 50 ML IV SCH (04:24)
[2017-12-20 04:28] LABS: Band Neutrophils % (manual) 29; Lymphocytes % (manual) 10 (10.0-50.0); Metamyelocytes % 3; Monocytes % (manual) 8 (0-12); Myelocytes % 2
[2017-12-20] MEDS: metroNIDAZOLE 500MG/100ML 100 ML IV SCH ×2 (04:58→14:00)
[2017-12-20] MEDS: LINEZOLID 600 MG/300 ML IV BAG IV SCH (05:55)
[2017-12-20] MEDS: POTASSIUM CHL 20MEQ/100ML 100 ML IV SCH ×4 (05:55→11:30)
[2017-12-20] MEDS: ACCU-CHEK COMFORT CURVE STRIP VI SCH ×2 (06:00→12:00)
[2017-12-20] MEDS: InsuLIN REG 1unit/0.01ml Soln (100units/ml) SC SCH ×2 (06:15→12:00)
[2017-12-20] MEDS: PERITONEAL DIALYSIS 1.5% SOLN 2,000 ML IP SCH ×2 (10:00→14:37)
[2017-12-20] MEDS ORDERED: CEFOTAXIME SODIUM 2 GM in D5W 5% 100 ML IV SCH (10:00)
[2017-12-20] MEDS: PANTOPRAZOLE 40 MG/10 ML VIAL IV SCH (10:26)
[2017-12-20] MEDS: HEPARIN SODIUM (PORCINE) 5000 UNITS/ML 1ML VIAL SC SCH (10:30)
[2017-12-20] MEDS: PHENYLEPHRINE INJ 20 MG in SODIUM CHL 0.9% 250 ML IV SCH ×3 (12:30→13:33)
[2017-12-20 12:48] LABS: BUN/Creatinine Ratio 6.1; Calcium 11.2 mg/dL (8.5-10.1); Potassium 4.8 mmol/L (3.5-5.1)
[2017-12-20] MEDS ORDERED: SODIUM BICARBONATE 8.4% INJ 50ML SYRINGE ONE (12:53)
[2017-12-20] MEDS ORDERED: EPINEPHrine HCL 250 ML IV ONE (12:54)
[2017-12-20] MEDS ORDERED: SODIUM BICARBONATE 50ML VIAL 150 ML in D5W 5% 1,000 ML IV SCH (14:00)
[2017-12-20] MEDS: CEFTRIAXONE SODIUM 2 GM in D5W 5% 50 ML IV SCH (14:37)
[2017-12-20] MEDS ORDERED: SODIUM BICARBONATE 8.4% INJ 50ML SYRINGE IV ONE (18:44)
[2017-12-20] MEDS ORDERED: EPINEPHrine HCL 1 MG/10 ML SYRG IV ONE (18:44)
[2017-12-20] MEDS ORDERED: CALCIUM CHLOR(10%) 100MG/ML 10ML SYRINGE IV ONE (18:44)
== END 2017-12-20 18:45 | disposition expired | DRG 871 ==
LOC: ER 20:47 → EDBD 20:47 → TELE 20:48 → ICU WEST 12-19 20:45
PROVIDERS: ADMIT Nurse Practitioner; ATTEND Internal Medicine
PROC: 5A1945Z Respiratory Ventilation, 24-96 Consecutive Hours (ICD-10-PCS; principal; 2017-12-19)
PROC: 0BH17EZ Insertion of Endotracheal Airway into Trachea, Via Natural or Artificial Opening (ICD-10-PCS; 2017-12-19)
PROC: 5A12012 Performance of Cardiac Output, Single, Manual (ICD-10-PCS; 2017-12-20)
DX: A41.9 Sepsis, unspecified organism (principal); R65.21 Severe sepsis with septic shock; J96.00 Acute respiratory failure, unspecified whether with hypoxia or hypercapnia; I46.9 Cardiac arrest, cause unspecified; K65.2 Spontaneous bacterial peritonitis; E11.22 Type 2 diabetes mellitus with diabetic chronic kidney disease; E66.01 Morbid (severe) obesity due to excess calories; K56.7 Ileus, unspecified; I12.0 Hypertensive chronic kidney disease with stage 5 chronic kidney disease or end stage renal disease; N18.6 End stage renal disease; E87.1 Hypo-osmolality and hyponatremia; R18.8 Other ascites; E11.40 Type 2 diabetes mellitus with diabetic neuropathy, unspecified; E11.319 Type 2 diabetes mellitus with unspecified diabetic retinopathy without macular edema; D63.8 Anemia in other chronic diseases classified elsewhere; Z66 Do not resuscitate; R00.1 Bradycardia, unspecified; E87.6 Hypokalemia; Z83.3 Family history of diabetes mellitus; Z68.33 Body mass index [BMI] 33.0-33.9, adult; Z90.49 Acquired absence of other specified parts of digestive tract; Z98.84 Bariatric surgery status; Z99.2 Dependence on renal dialysis; Z88.0 Allergy status to penicillin; Z88.1 Allergy status to other antibiotic agents; Z89.422 Acquired absence of other left toe(s)
CPT/HCPCS: 36415; 36600; 71045; 74176; 80048; 80053; 82805; 82962; 83036; 83605; 83735; 83880; 84132; 84484; 85007; 85025; 85027; 85610; 85730; 86850; 86900; 86901; 87040; 87070; 87077; 87081; 87186; 87205; 89051; 93005; 93306; 94002; 94003; 94640; 96361; 96365; 96367; 96375; C9113; J0171; J0696; J1815; J1956; J2250; J3480; J3490; J7060; P9047